=== PATIENT | female | born 1980 | race Caucasian/White ===

== ENCOUNTER 2023-01-20 08:35 | Outpatient (REF) | payer MEDICAID, SELFPAY ==
[2023-01-20 11:30] LABS: MANUAL DIFF FLAG NO
[2023-01-20 11:44] LABS: Basophils Percent Auto 0.8 % (0-2); Eosinophils Absolute Auto 0.1 X10*3/uL (0.0-0.4); Eosinophils Percent Auto 1.3 % (0-4); Hematocrit 38.8 % (37.0-47.0); Hemoglobin 12.3 g/dl (12.0-16.0); Imm Gran Abs Auto 0.01 X10*3/uL (0.00-0.03); Imm Gran Pct Auto 0.2 % (0.0-0.4); Lymphocytes Absolute Auto 1.5 X10*3/uL (1.2-4.9); Lymphocytes Percent Auto 28.8 % (20-40); Mean Corpuscular HGB Conc 31.7 g/dl (31.0-35.0); Mean Corpuscular Hemoglobin 27.5 pg (27.0-33.0); Mean Corpuscular Volume 86.8 fL (80.0-98.0); Mean Platelet Volume 11.6 fL (9.4-12.3); Monocytes Absolute Auto 0.4 X10*3/uL (0.1-1.2); Monocytes Percent Auto 8.3 % (2-11); Neutrophils Absolute Auto 3.2 x10*3/uL (2.0-8.3); Neutrophils Percent Auto 60.6 % (45-73); Platelet Count 227 X10*3/uL (160-400); Red Blood Count 4.47 X10*6/uL (4.20-5.50); Red Cell Distribution Width 13.2 % (11.0-16.0); White Blood Count 5.3 X10*3/uL (4.8-10.8)
[2023-01-20 11:58] LABS: Estimated Average Glucose 103 mg/dL; Hemoglobin A1c % 5.2 % (<6.0)
[2023-01-20 11:59] LABS: Alanine Aminotransferase 12 U/L (0-31); Albumin Level 4.2 g/dL (3.5-5.0); Alkaline Phosphatase 44 U/L (39-117); Anion Gap 10 (12-20); Aspartate Amino Transferase 19 U/L (5-31); Bilirubin Total 0.5 mg/dL (0.0-1.0); Blood Urea Nitrogen 11 mg/dL (9-16); Calcium 9.4 mg/dL (8.4-10.2); Carbon Dioxide 26 mmol/L (22-29); Chloride 107 mmol/L (96-108); Cholesterol 161 mg/dL (<200); Estimated Glomerular Filt Rate > 60; Glucose Random 87 mg/dL (60-115); HDL Cholesterol 64 mg/dL (>40); LDL Cholesterol Calculated 87 mg/dL (<100); Potassium 4.5 mmol/L (3.3-5.1); Sodium 138 mmol/L (135-145); Total Protein 7.3 g/dL (6.5-8.0); Triglycerides 53 mg/dL (<150)
[2023-01-20 12:16] LABS: HBc Num1 0.14 S/CO (0.00-0.79); HBsAGNum1 0.37 S/CO (0.00-0.99); HIV AB/AG Nonreactive (Nonreactive); Hepatitis A Antibody IgM 0.18 Index (0-0.79); Hepatitis B Core Antibody Nonreactive (Nonreactive); Hepatitis B Surface Antigen Negative (Negative); ~HepC Num1 0.14 S/CO (0.00-0.79); ~Hepatitis A Antibody IgM Nonreactive (Nonreactive); ~Hepatitis B Surface Antibody NONREACTIVE (Nonreactive); ~Hepatitis C Antibody Nonreactive (Nonreactive)
[2023-01-21 03:49] LABS: Syphilis Screen Nonreactive (Nonreactive)
== END 2023-01-20 08:36 | disposition home or self-care (01) ==
LOC: HO.HHCL 08:35
PROVIDERS: Visit Provider Registered Nurse
DX: Z00.00 Encounter for general adult medical examination without abnormal findings (principal); R42 Dizziness and giddiness; Z13.1 Encounter for screening for diabetes mellitus; Z13.220 Encounter for screening for lipoid disorders
CPT/HCPCS: 36415; 80053; 80061; 83036; 85025; 86704; 86706; 86709; 86780; 86803; 87340; 87389

== ENCOUNTER 2023-05-24 14:41 | Outpatient (REF) | payer MEDICAID, SELFPAY ==
[2023-05-27 07:18] LABS: TS Negative Control Passed; TS Panel A 0; TS Panel B 0; TS Positive Control Passed; TSpotTB Negative (Negative)
== END 2023-05-24 14:42 | disposition home or self-care (01) ==
LOC: HO.HHCL 14:41
PROVIDERS: Visit Provider Student in an Organized Health Care Education/Training Program
DX: Z11.1 Encounter for screening for respiratory tuberculosis (principal)
CPT/HCPCS: 36415; 86481

== ENCOUNTER 2024-08-10 09:07 | Outpatient (REF) | payer MEDICAID, SELFPAY ==
--- OUTSIDE RECORDS SUMMARY | 2024-08-10 09:43 | XMS_ITS | Encounter Summary ---
Author Organization [email or web address] Address [address] [facility] 7 [place] [address] Care Team Providers Care Ethnoarchaeologist Name Role Phone Dori Garcia MD Primary Care Pro vider Reason for Visit * Reason Onset Date Comments Lab Orders 08/10/2024 Appointment Request 08/10/2024 Encounter Details Date Type Department Care Team ([facility] st Contact Info) Description 08/10/2024 Telephone [facility] MEDICINE [address] [place], [place] [phone] Mary Jane Douglas, RN [address] [place] [address] Lab Orders; Appointment Request Social History Tobacco Use Types Packs/Day Years Used Date Smoking Tobacco: Never Passive Smoke Exposure: Never Smokeless Tobacco: Never Depression Answer Date Recorded Patient Health Questionnaire-9 Score 0 02/15/2023 Housing Stability Answer Date Recorded What is your housing situation today? I have benradha barlow 03/14/[address] you li ve. Do you have problems with any of the following? None of the above 03/14/2023 Food Insecurity Answer Date Recorded Within the past 12 months, y ou worried that your food would run out before you got money to buy more: Never True 03/14/2023 Within the past 12 months,th e food you bought just didn't last and you didn't have enough money to get more: Never True Transportation Answer Date Recorded In the past 12 months, has l ack of transportation kept you from medical appts, meetings, work or from getting things needed for daily living? No 03/14/2023 Utilities Answer Date Recorded In the past 12 months, has t he electric, gas, oil or water company threatened to shut off services in your home? No 03/14/2023 Depression Answer Date Recorded Patient Health Questionnaire-2 Score 0 02/15/2023 Comments Unknown Sex and Gender Information Value Date Recorded Sex Assigned at Female 01/18/2023 12:48 PM EDT Legal Sex Female 2:12 PM EDT Gender Identity Female 01/18/2023 12:48 PM EDT Sexual Orientation Don't know 01/18/2023 12 :48 PM EDT documented as of this encounter Miscellaneous Notes * Telephone Encounter - Mary Jane Douglas RN - 08/10/2024 8:59 AM EDT Pt requesting TB test for work. Order placed. Pt will go to the lab. Informed results usually available within 24-48hrs. Can pick them up from HIM once available. documented in this encounter Plan of Treatment Upcoming Encounters Date Type Department Care Team (Late st Contact Info) Description 10/25/2024 1:45 PM EDT Office Visit [facility] MEDICINE [address] [place] [phone] Dori Garcia MD [address] [place] [phone] Scheduled Orders Name Type Priority Associated Diagnoses Orde r Schedule T-SPOT??.TB Lab Routine Screening for tuberculosis Expected: 08/10/2024 (Approximate), Expires: 08/10/2025 documented as of this encounter Visit Diagnoses Diagnosis Screening for tuberculosis Screening examination for pulmonary tuberculosis documented in this encounter Additional Health Concerns Assessment Noted Time PHQ-9 Depression Total Score: 0 02/16/20 9:06 AM EDT documented as of this encounter Care Teams Ethnoarchaeologist Relationship Specialty Start Date End Date Dori Garcia MD [address] [place] [phone] PCP - General Internal Medicine 02/15/23 documented as of this encounter
--- OUTSIDE RECORDS SUMMARY | 2024-08-10 09:43 | XMS_ITS | Clinical Summary ---
Author Organization [employer] Address [address] [facility] 7t [place] [address] Care Team Providers Care Vocational Trainer Name Role Phone Dori Garcia MD Primary Care Pro vider Allergies No known active allergies Medications ondansetron ODT (Zofran-ODT) 4 MG disintegrating tabletIndications: Frequent headaches Take 1 tablet (4 mg) by mouth every 8 (eight) hours if needed for nausea or vomiting. 60 tablet 1 3 Active SUMAtriptan (Imitrex) 25 MG tabletIndications: Frequent headaches Take 1 tablet (25 mg) by mouth 1 (one) time if needed for migraine for up to 1 dose. May repeat dose once in 2 hours if no relief. Do not exceed 2 doses in 24 hours. 9 tablet 2 3 Active metroNIDAZOLE (MetroCream) 0.75 % cream Apply topically 2 times daily. 45 g 1 4 12/28/19 25 Active Active Problems Problem Noted Date Diagnosed Date Vision changes 02/15/2023 Assessment & Plan (03/03/2023 10:28 AM EDT): Contacted Optometry at [facility] again to discuss pt case Unable to obtain records from [facility] eye exam but pt reports her eyes were dilated and was told exam is normal Continued head pressure, dizziness, and darkening spots in vision are concerning. [facility] vision will schedule for urgent eye evaluation F/u 3 months with new PCP IUFD at 20 weeks or more of gestation 01/18/2023 Overview (01/18/2023): Onset 3 years ago Induced labor IUFD, fetus had stopped developing. Secondary cataract of right eye 01/18/2023 Overview (01/18/2023): Occurred after Induced labor due to IUFD Also may have lens transplant R eye; unclear. No medical records Health care maintenance 01/18/2023 Overview (03/03/2023): Routine Health Maintenance: Immunizations: Due Hep B booster vaccines, declines today. Will consider in future. HIV: Nonreactive 01/20/23 Hep C: Nonreactive 01/20/23 Hepatitis B: Nonreactive surface antibodies 01/20/23. Recommend repeat Hep B booster vaccine series. Pap Smear: Discuss next visit. Shared decision-making guidelines. ACS: age 25-65 HPV swab every 5 years. USPSTF: age 21-25 cytology only q 3 y; age 25-29 cytology w/ reflex HPV q 3 y; age 30-65 PAP w/ HPV cotest q 5 years. DUE, discuss next visit Mammogram: Discuss next visit. Per ACS screening start age 45, earlier if risk factors present. Per USPSTF guidelines screenings Age 50-74 screening every other year. DUE, discuss next visit Colonoscopy: not due yet Lung cancer: Never smoker, does not meet criteria Eye: concerning eye sx. Will call for for [facility] vision appt Dental: discuss at next visit Assessment & Plan (02/15/2023 1:25 PM EDT): Reviewed labs with pt in clinic today Frequent headaches 01/18/2023 Overview (03/03/2023): Ddx: Migraines; pseudotumor cerebri; tension headache; medication overuse headache MRI performed, results pending Sumatriptan 25 mg PRN for headache Rx Zofran for nausea; educated on use Taking med Corvaltab that was prescribed in [facility] Assessment & Plan (03/03/2023 10:31 AM EDT): Will obtain MRI results Educated pt that Corvaltab is a strong medication that is not prescribed in the [place]. Tremors and headaches may be SE of medication per Provider research online. Educated pt to hold corvaltab. Also no need for benzodiazepine at the time, do not take Gidazepam. Continue sumatriptan and zofran Will schedule for vision exam [facility] Vision urgent d/t continued darkening of vision F/u 2-3 mo with new PCP or sooner PRN Encounters Date Type Department Care Team Description 08/10/2024 Telephone [facility] MEDICINE [address] [place] [address] Mary Jane Douglas, nail making machine tender Orders; Appointment Request from Last 3 Months Family History Medical History Relation Name Comments stomach ulcer Father Stomach ulcer Maternal Grandfather Liver disease Mother Relation Name Status Comments Father Maternal Grandfather Mother Social History Tobacco Use Types Packs/Day Years Used Date Smoking Tobacco: Never Passive Smoke Exposure: Never Smokeless Tobacco: Never Tobacco Cessation:Counseling Given: Not Answered Depression Answer Date Recorded Patient Health Questionnaire-9 [...] the past 12 months, has t he [employer], gas, oil or water [employer] threatened to shut off services in your home? No 03/14/2023 Depression Answer Date Recorded Patient Health Questionnaire-2 Score 0 02/15/2023 Comments Unknown Sex and Gender Information Value Date Recorded Sex Assigned at Female 01/18/2023 12:48 PM EDT Legal Sex Female 2:12 PM EDT Gender Identity Female 01/18/2023 12:48 PM EDT Sexual Orientation Don't know 01/18/2023 12 :48 PM EDT Last Filed Vital Signs Vital Sign Reading Time Taken Comments Blood Pressure 123/82 12/28/2023 8:56 AM EDT Pulse 66 12/28/2023 8:56 AM EDT Temperature 36.6 ??C (97.8 ??F) 12/28/2023 8:56 AM ED T Respiratory Rate 16 12/28/2023 8:56 AM EDT Oxygen Saturation 98% 12/28/2023 8:56 AM EDT Inhaled Oxygen Concentration - - Weight 66.9 kg (147 lb 6.4 oz) 12/28/2023 8:56 A M EDT Height 165.1 cm (5' 5 ) 12/28/2023 8:56 AM EDT Body Mass Index 24.53 12/28/2023 8:56 AM EDT Plan of Treatment Upcoming Encounters Date Type Department Care Team (Late st Contact Info) Description 10/25/2024 1:45 PM EDT Office Visit [facility] MEDICINE [address] [place] [address] [phone] Dori Garcia MD [address] [place], [place] [phone] Health Maintenance Due Date Last Done Comments Alcohol/Substance Use Screening 1993 Family Planning (PISQ) 1996 DTaP/Tdap/Td Vaccines (1 - Tdap) 2000 Hepatitis B Vaccines (1 of 3 - 19+ 3-dose series) 2000 Pap Smear 2002 Cervical Cancer Screening 10/24/2011 HPV/Cotest 10/24/2011 Mammogram 2021 COVID-19 Vaccine (1 - 2023-2 5 season) 2024 Influenza Vaccine (#1) 2024 Depression Screening 02/16/2024 02/15/2023, 02/15/2023 SDOH Screening 02/16/2024 02/15/2023 Tobacco Screening 02/16/2024 02/15/2023 Zoster Vaccines (1 of 2) 10/24/2031 RSV Patients and Patients Aged 60 years or older (1 - 1-dose 75+ series) 2056 HIV Screening Completed 01/20/2023 Hepatitis C Screening Completed 01/20/2023 HIB Vaccines Aged Out No longer eligi ble based on patient's age to complete this topic HPV Vaccines Aged Out No longer eligi ble based on patient's age to complete this topic Hepatitis A Vaccines Aged Out No long er eligible based on patient's age to complete this topic IPV Vaccines Aged Out No longer eligi ble based on patient's age to complete this topic Meningococcal Vaccine Aged Out No fabricio cleopatra eligible based on patient's age to complete this topic Pneumococcal Vaccine: Pediatrics (0 to 5 Years) and At-Risk Patients (6 to 49) Years) Aged Out No longer eligible b ased on patient's age to complete this topic RSV under 20 months Aged Out No longe r eligible based on patient's age to complete this topic Rotavirus Vaccines Aged Out No longer eligible based on patient's age to complete this topic Procedures Procedure Name Priority Date/Time Associated Diagnosis Comments HEPATITIS PANEL, GENERAL Routine 01/20/2023 8:42 AM EDT Health care maintenance HIV ANTIBODY/ANTIGEN ([place] DPH) Routine 01/20/2023 8:42 AM EDT from Last 3 Months or Most Recently Relevant to Health Maintenance Results * HIV Ab/Ag ([place] DPH) (01/20/2023 8:42 AM EDT) Pathologist [facility] HIV AB/AG Nonreactive Nonreactive [facility] Comment:HIV-1 p24 Ag and/or HIV-1/HIV-2 Ab not detected.A test result that is nonreactive does not exclude thepossibility of exposure to or infection with HIV-1 and/orHIV-2. Nonreactive results in this assay for individualswith prior exposure to HIV-1 and/or HIV-2 may be due toantigen and antibody levels that are below the limit ofdetection of this assay.The [employer] Supervisor HIV Ag/Ab Combo assay result andsupplemental assay results should be interpreted inconjunction with the patient's clinical presentation,history and other laboratory results. If the results areinconsistent with clinical evidence, additional testing issuggested to confirm the result. 01/20/2023 8:42 AM EDT 01/20/2023 11:24 AM EDT Kenzie Be PAYMENT COLLECTOR LAB BLOOD ORDERABLES Final Result Performing Organization Address City/[facility]/ZIP Co de Phone Number [facility] [address] [place] [phone] [phone] * Hepatitis Panel, General (01/20/2023 8:42 AM EDT) Hepatitis A IgM Nonreactive Nonreactive [facility] Comment:IgM antibodies to FIGUEREDO V not detected; does not exclude earlyacute or recovered HAV infection. ~Hepatitis B Surface Antibody NONREACTIVE Nonreactive [facility] Comment:Nonreactive: < 8.00 mIU/mL Hepatitis B Core Antibody Nonreactive Nonreactive [facility] Hepatitis C Antibody Nonreactive Nonreactive [facility] Comment:Antibodies to HCV no t detected; does not exclude early acuteHCV infection. Hepatitis B Surface Ag Negative Negative [facility] Blood 01/20/2023 8:42 AM EDT 01/20/2023 11:24 AM EDT Kenziepatricia Be PAYMENT COLLECTOR LAB BLOOD ORDERABLES Final Result Performing Organization Address [facility] Co de Phone Number [facility] [address] [place] [phone] from Last 3 Months or Most Recently Relevant to Health Maintenance Insurance [facility] C3 Care Teams Vocational Trainer Relationship Specialty Start Date End Date Dori Garcia MD [address] [place] [phone] PCP - General Internal Medicine 02/15/23
[2024-08-14 00:52] LABS: TS Negative Control Passed; TS Panel A 1; TS Panel B 0; TS Positive Control Passed; TSpotTB Negative (Negative)
== END 2024-08-10 09:08 | disposition home or self-care (01) ==
LOC: HO.HHCL 09:07
PROVIDERS: Visit Provider Student in an Organized Health Care Education/Training Program
DX: Z11.1 Encounter for screening for respiratory tuberculosis (principal)
CPT/HCPCS: 36415; 86481

== ENCOUNTER 2025-03-29 10:36 | Outpatient (REF) | payer MEDICAID, SELFPAY ==
--- OUTSIDE RECORDS SUMMARY | 2025-03-29 09:15 | XMS_ITS | Encounter Summary ---
Author Organization [employer] Address [address] [place] [address] 7 [place] [address] Care Team Providers Care Category Manager Name Role Phone Dori Garcia MD Primary Care Pro vider Reason for Referral * Consultation (Routine) - Pending Review Specialty Diagnoses / Procedures Referred By Satnam reid Referred To Contact Neurology Diagnoses Frequent headaches Dori Garcia MD [address] [place] [address] Phone: tel: fax: Referral ID Status Reason Start Date Expiration Date Visits Requested Visits Authorized [id number] Pending Review Specialty Services Required 03/29/2026 1 1 * Imaging (Routine) - Authorized Specialty Diagnoses / Procedures Referred By Satnam reid Referred To Contact Radiology Diagnoses Encounter for screening mammogram for malignant neoplasm of breast Procedures BI Mammogram Screening Tomosynthesis Bilateral Dori Garcia MD [address] [place] [address] Phone: tel: fax: [facility] Referral ID Status Reason Start Date Expiration Date V isits Requested Visits Authorized [id number] Authorized 03/29/2025 03/29/2026 1 1 Encounter Details Date Type Department Care Team (Late st Contact Info) Description 03/29/2025 9:15 AM EDT Office Visit [facility] MEDICINE [address] [place] [address] Dori Garcia MD [address] [place] [address] Encounter for screening mammogram for malignant neoplasm of breast (Primary Dx); Health care maintenance; Frequent headaches; Annual physical exam Social History Tobacco Use Types Packs/Day Years Used Date Smoking Tobacco: Never Passive Smoke Exposure: Never Smokeless Tobacco: Never Alcohol Use Standard Drinks/Week Comments Not Currently 0 (1 standard drink = 0.6 oz pur e alcohol) Depression Answer Date Recorded Patient Health Questionnaire-9 Score 0 02/15/2023 Housing Stability Answer Date Recorded What is your housing situation today? I have ben yen 03/14/[address] you li [...] Date Recorded Patient Health Questionnaire-2 Score 0 03/29/2025 Comments Unknown Sex and Gender Information Value Date Recorded Sex Assigned at Female 01/18/2023 12:48 PM EDT Legal Sex Female 2:12 PM EDT Gender Identity Female 01/18/2023 12:48 PM EDT Sexual Orientation Straight 03/29/2025 9: 38 AM EDT documented as of this encounter Last Filed Vital Signs Vital Sign Reading Time Taken Comments Blood Pressure 118/68 03/29/2025 9:35 AM EDT Pulse 67 03/29/2025 9:35 AM EDT Temperature 36.1 C (97 F) 03/29/2025 9:35 AM EDT Respiratory Rate 20 03/29/2025 9:35 AM EDT Oxygen Saturation 98% 03/29/2025 9:35 AM EDT Inhaled Oxygen Concentration - - Weight 65.5 kg (144 lb 6.4 oz) 03/29/2025 9:35 A M EDT Height 165.1 cm (5' 5 ) 03/29/2025 9:35 AM EDT Body Mass Index 24.03 03/29/2025 9:35 AM EDT documented in this encounter Functional Status * Question Answer Date of Assessment Author Feeling nervous, anxious, or on edge 0 03/29/2025 9:39 AM EDT Hyun Garcia MD Not being able to stop or control worrying 0 03/29/2025 9:39 AM EDT Hyun Garcia MD * Over the past 2 weeks, how often have you been bothered by any of the following problems? Question Answer Date of Assessment Author Little interest or pleasure in doing things Not at all 03/29/2025 9:38 AM EDT Hyun Garcia MD Feeling down, depressed, or hopeless Not at all 03/29/2025 9:38 AM EDT Hyun Garcia MD Patient Health Questionnaire-2 Score 0 03/29/2025 9:38 AM EDT Emil Garcia MD documented as of this encounter Plan of Treatment Scheduled Orders Name Type Priority Associated Diagnoses Orde r Schedule BI Mammogram Screening Tomosynthesis Bilateral Imaging Routine Encounter for screening mammogram for malignant neoplasm of breast Expected: 03/29/2025, Expires: 05/29/2026 Chlamydia/Trichomonas/Neis seria gonorrhoeae, PCR, Urine Lab Routine Annual physical exam Ordered: 03/29/2025 Comprehensive Metabolic Panel Lab Routine Annual physical exam Expected: 03/29/2025 (Approximate), Expires: 03/29/2026 Hemoglobin A1c Lab Routine Annual physical exam Expected: 03/29/2025 (Approximate), Expires: 03/29/2026 Hepatitis B Core Antibody, Total Lab Routine Annual physical exam Expected: 03/29/2025 (Approximate), Expires: 03/29/2026 Hepatitis B Surface Antibody, Qualitative Lab Routine Annual physical exam Expected: 03/29/2025 (Approximate), Expires: 03/29/2026 Hepatitis B surface antigen, EIA Lab Routine Annual physical exam Expected: 03/29/2025 (Approximate), Expires: 03/29/2026 Hepatitis C Antibody with Reflex to HCV, RNA, Quantitative, Real-Time PCR Lab Routine Annual physical exam Expected: 03/29/2025 (Approximate), Expires: 03/29/2026 HIV-1/2 Antigen and Antibodies, Fourth Generation, with Reflexes Lab Routine Annual physical exam Expected: 03/29/2025 (Approximate), Expires: 03/29/2026 Lipid Panel, Standard Lab Routine Annual physical exam Expected: 03/29/2025 (Approximate), Expires: 03/29/2026 Syphilis Screen Lab Routine Annual physical exam Expected: 03/29/2025 (Approximate), Expires: 03/29/2026 TSH with Reflex to Free T4 Lab Routine Annual physical exam Expected: 03/29/2025 (Approximate), Expires: 03/29/2026 Scheduled Referrals Name Type Priority Associated Diagnoses Orde r Schedule Referral to Neurology Outpatient Referral Routine Frequent headaches Expected: 03/29/2025 (Approximate), Expires: 03/29/2026 documented as of this encounter Procedures Procedure Name Priority Date/Time Associated Diagnosis Comments CBC WITH AUTO DIFFERENTIAL Routine 03/29/2025 10:44 AM EDT Annual physical exam documented in this encounter Results * CBC auto differential (03/29/2025 10:44 AM EDT) White Blood Count 5.1 4.8 - 10.8 X10*3/uL [facility] Red Blood Count 4.51 4.20 - 5.50 X10*6/uL [facility] Hemoglobin 12.4 12.0 - 16.0 g/dl [facility] Hematocrit 40.0 37.0 - 47.0 % [facility] Mean Corpuscular Volume 88.7 80.0 - 98.0 fL [facility] Mean Corpuscular Hemoglobin 27.5 27.0 - 33.0 pg [facility] Mean Corpuscular HGB Conc 31.0 31.0 - 35.0 g/dl [facility] Red Cell Distribution Width 13.2 11.0 - 16.0 % [facility] Platelet Count 238 160 - 400 X10*3/uL [facility] Mean Platelet Volume 11.5 9.4 - 12.3 fL [facility] Neutrophils Percent Auto 66.1 45 - 73 % [facility] Imm Gran Pct Auto 0.2 0.0 - 0.4 % [facility] Lymphocytes Percent Auto 23.3 20 - 40 % [facility] Monocytes Percent Auto 8.0 2 - 11 % [facility] Eosinophils Percent Auto 1.6 0 - 4 % [facility] Basophils Percent Auto 0.8 0 - 2 % [facility] NRBC Pct Auto 0.0 0.0 - 0.2 /100WBC [facility] Neutrophils Absolute Auto 3.4 2.0 - 8.3 x10*3/uL [facility] Imm Gran Abs Auto 0.01 0.00 - 0.03 X10*3/uL [facility] Lymphocytes Absolute Auto 1.2 1.2 - 4.9 X10*3/uL [facility] Monocytes Absolute Auto 0.4 0.1 - 1.2 X10*3/uL [facility] Eosinophils Absolute Auto 0.1 0.0 - 0.4 X10*3/uL [facility] Basophils Absolute Auto 0.0 0.0 - 0.2 X10*3/uL [facility] NRBC Abs Auto 0.000 0.0 - 0.012 X10*3/uL [facility] Blood Venous blood specimen / Unknown 03/29/2025 10:44 AM EDT 03/29/2025 11:22 AM EDT us Dori Roberts MD LAB BLOOD ORDERAB LES Final Result [facility] [address] [place] [address] [phone] documented in this encounter Visit Diagnoses Diagnosis Encounter for screening mammogram for malignant neoplasm of breast- Primary Health care maintenance Frequent headaches Annual physical exam Routine general medical examination at a health care facility documented in this encounter Additional Health Concerns Assessment Noted Time PHQ-9 Depression Total Score: 0 02/16/20 9:06 AM EDT documented as of this encounter Care Teams Category Manager Relationship Specialty Start Date End Date Dori Garcia MD [address] [place] [phone] PCP - General Internal Medicine 02/15/23 documented as of this encounter
[2025-03-29 11:28] LABS: MANUAL DIFF FLAG NO
[2025-03-29 11:37] LABS: Hematocrit 40.0 % (37.0-47.0); Hemoglobin 12.4 g/dl (12.0-16.0); Imm Gran Abs Auto 0.01 X10*3/uL (0.00-0.03); Imm Gran Pct Auto 0.2 % (0.0-0.4); Lymphocytes Absolute Auto 1.2 X10*3/uL (1.2-4.9); Mean Corpuscular HGB Conc 31.0 g/dl (31.0-35.0); Mean Corpuscular Hemoglobin 27.5 pg (27.0-33.0); Mean Corpuscular Volume 88.7 fL (80.0-98.0); NRBC Abs Auto 0.000 X10*3/uL (0.0-0.012); NRBC Pct Auto 0.0 /100WBC (0.0-0.2); Platelet Count 238 X10*3/uL (160-400); Red Blood Count 4.51 X10*6/uL (4.20-5.50); White Blood Count 5.1 X10*3/uL (4.8-10.8)
--- OUTSIDE RECORDS SUMMARY | 2025-03-29 12:01 | XMS_ITS | Encounter Summary ---
Author Organization [employer] Address [address] [facility] 7 [place] [address] Care Team Providers Care Night Supervisor Name Role Phone Dori Garcia MD Primary Care Pro vider Reason for Visit * Reason Onset Date Comments chart prep 03/28/2025 Encounter Details Date Type Department Care Team ([facility] st Contact Info) Description 03/28/2025 Telephone [facility] MEDICINE [address] [place], [place] [phone] Dori Garcia MD [address] [place] [address] chart prep Social History Tobacco Use Types Packs/Day Years [...] the past 12 months, has t he [employer], [employer], oil or water [employer] threatened to shut off services in your home? No 03/14/2023 Depression Answer Date Recorded Patient Health Questionnaire-2 Score 0 03/29/2025 Comments Unknown Sex and Gender Information Value Date Recorded Sex Assigned at Female 01/18/2023 12:48 PM EDT Legal Sex Female 2:12 PM EDT Gender Identity Female 01/18/2023 12:48 PM EDT Sexual Orientation Straight 03/29/2025 9: 38 AM EDT documented as of this encounter Miscellaneous Notes * Telephone Encounter - Steffanie Dior [place] - 03/28/2025 10:21 AM EDT Chart Prep Labs: not applicable Images: Pelvic [facility] at [facility] 02/1725 prited form [facility] Referrals: [facility] kept 02/25/25 notes printed Vaccines due: Covid and Flu Screenings: mammogram, pap smear, and LMP Overdue care gaps: SBIRT, SDOH, PHQ-9, HA-7, Oral health screening, and Disability screen documented in this encounter Plan of Treatment Not on file documented as of this encounter Visit Diagnoses Not on filedocumented in this encounter Additional Health Concerns Assessment Noted Time PHQ-9 Depression Total Score: 0 02/16/20 9:06 AM EDT documented as of this encounter Care Teams Night Supervisor Relationship Specialty Start Date End Date Dori Garcia MD [address] [place] [phone] PCP - General Internal Medicine 02/15/23 documented as of this encounter
--- OUTSIDE RECORDS SUMMARY | 2025-03-29 12:01 | XMS_ITS | Encounter Summary ---
Author Organization [employer] Address [address] [facility] 7t [place] [address] Care Team Providers Care Managed Care Liaison Name Role Phone Dori Garcia MD Primary Care Pro vider Encounter Details Date Type Department Care Team ([facility] st Contact Info) Description 12/06/2024 Telephone [facility] MEDICINE [address] [place], [place] [phone] Dori Garcia MD [address] [place] [address] Social History Tobacco Use Types Packs/Day Years [...] AM EDT documented as of this encounter Plan of Treatment Not on file documented as of this encounter Visit Diagnoses Not on filedocumented in this encounter Additional Health Concerns Assessment Noted Time PHQ-9 Depression Total Score: 0 02/16/20 9:06 AM EDT documented as of this encounter Care Teams Managed Care Liaison Relationship Specialty Start Date End Date Dori Garcia MD [address] [place] [phone] PCP - General Internal Medicine 02/15/23 documented as of this encounter
--- OUTSIDE RECORDS SUMMARY | 2025-03-29 12:01 | XMS_ITS | Encounter Summary ---
Author Organization [employer] Address [address] [facility] 7t [place] [address] Care Team Providers Care Presales Engineer Name Role Phone Dori Garcia MD Primary Care Pro vider Encounter Details Date Type Department Care Team (Latest Contact Info) Description 03/29/2025 Travel Social History Tobacco Use Types Packs/Day Years [...] AM EDT documented as of this encounter Functional Status * Question Answer [...] documented as of this encounter Care Teams Presales Engineer Relationship Specialty Start Date End Date Dori Garcia MD [address] [place] [phone] PCP - General Internal Medicine 02/15/23 documented as of this encounter
--- OUTSIDE RECORDS SUMMARY | 2025-03-29 12:01 | XMS_ITS | Clinical Summary ---
Author Organization [email or web address] Address [address] [facility] 7t [place] [address] Care Team Providers Care Injection Mold Technician Name Role Phone Dori Garcia MD Primary Care Pro vider Allergies No known active allergies Medications Multiple Vitamin (multivitamin) tablet Take 1 tablet by mouth Once per day. Active ibuprofen 400 MG tablet Take 400 mg by mouth every 6 (six) hours if needed for moderate pain. Active ondansetron ODT (Zofran-ODT) 4 MG disintegrating tabletIndications: Frequent headaches Take 1 tablet (4 mg) by mouth every 8 (eight) hours if needed for nausea or vomiting. 60 tablet 1 3 025 Discontin ued(Other ) SUMAtriptan (Imitrex) 25 MG tabletIndications: Frequent headaches Take 1 tablet (25 mg) by mouth 1 (one) time if needed for migraine for up to 1 dose. May repeat dose once in 2 hours if no relief. Do not exceed 2 doses in 24 hours. 9 tablet 2 3 025 Discontin ued(Other ) Active Problems Problem Noted Date Diagnosed Date IUFD at 20 weeks or more of [...] concerning eye sx. Will call for for [facility] vision appt Dental: discuss at next visit Assessment & Plan (02/15/2023 1:25 PM EDT): Reviewed labs with pt in clinic today Frequent headaches 01/18/2023 Overview (03/03/2023): Ddx: Migraines; pseudotumor cerebri; tension headache; medication overuse headache MRI performed, results pending Sumatriptan 25 mg PRN for headache Rx Zofran for nausea; educated on use Taking med Corvaltab that was prescribed in [facility] Assessment & Plan (03/03/2023 10:31 AM EDT): [...] and zofran Will schedule for vision exam [facility] Vision urgent d/t continued darkening of vision F/u 2-3 mo with new PCP or sooner PRN Encounters Date Type Department Care Team Description 03/29/2025 9:15 AM EDT Office Visit [facility] MEDICINE [address] [place] [phone] Dori Garcia MD Encounter for screening mammogram for malignant neoplasm of breast (Primary Dx); Health care maintenance; Frequent headaches; Annual physical exam 03/29/2025 Travel 03/28/[address] [phone] Dori Garcia MD chart prep 03/21/2025 Patient Outreach [address] [address] Dori Garcia MD Pre-visit Planning (Pre-visit planning - LVM ) from Last 3 Months Family History Medical History Relation Name Comments stomach ulcer Father Stomach ulcer Maternal Grandfather Liver disease Mother Relation Name Status Comments Father Maternal Grandfather Mother Social History Tobacco Use Types Packs/Day Years Used Date Smoking Tobacco: Never Passive Smoke Exposure: Never Smokeless Tobacco: Never Tobacco Cessation:Counseling Given: Not Answered Alcohol Use Standard Drinks/Week Comments Not Currently [...] Orientation Straight 03/29/2025 9: 38 AM EDT Last Filed Vital Signs Vital Sign [...] Mass Index 24.03 03/29/2025 9:35 AM EDT Plan of Treatment Health Maintenance Due Date Last Done Comments Disability Screening 1981 Alcohol/Substance Use Screening 1993 Family Planning (PISQ) 1996 HPV Vaccines (1 - 3-dose series) 1996 DTaP/Tdap/Td Vaccines (1 - Tdap) 2000 Hepatitis B Vaccines (1 of 3 - 19+ 3-dose series) 2000 Pap Smear 2002 Cervical Cancer Screening 10/24/2011 HPV/Cotest 10/24/2011 Mammogram 2021 SDOH Screening 02/16/2024 02/15/2023 COVID-19 Vaccine (1 - 2023-2 5 season) 2025 Influenza Vaccine (#1) 2025 Depression Screening 03/29/2026 03/29/2025, 02/15/2023 Tobacco Screening 03/29/2026 03/29/2025 Zoster Vaccines (1 of 2) 10/24/2031 RSV [...] patient's age to complete this topic Meningococcal B Vaccine Aged Out No l onger eligible based on patient's age to complete this topic Meningococcal Vaccine Aged Out No fabricio cleopatra eligible based on patient's age to complete this topic Pneumococcal Vaccine: Pediatrics (0 to 5 Years) and At-Risk Patients (6 to 49) Years Aged Out No longer eligible b ased [...] 03/29/2025 10:44 AM EDT Annual physical exam HEPATITIS PANEL, GENERAL Routine 01/20/2023 8:42 AM EDT Health care maintenance HIV ANTIBODY/ANTIGEN (ND DP) Routine 01/20/2023 8:42 AM EDT from Last 3 Months or Most Recently Relevant to Health Maintenance Results * CBC auto differential (03/29/2025 10:44 AM EDT) White Blood Count 5.1 4.8 - 10.8 X10*3/uL LABS Red Blood Count 4.51 4.20 - 5.50 X10*6/uL LABS Hemoglobin 12.4 12.0 - 16.0 g/dl LABS Hematocrit 40.0 37.0 - 47.0 % LABS Mean Corpuscular Volume 88.7 80.0 - 98.0 fL LABS Mean Corpuscular Hemoglobin 27.5 27.0 - 33.0 pg LABS Mean Corpuscular HGB Conc 31.0 31.0 - 35.0 g/dl LABS Red Cell Distribution Width 13.2 11.0 - 16.0 % LABS Platelet Count 238 160 - 400 X10*3/uL LABS Mean Platelet Volume 11.5 9.4 - 12.3 fL LABS Neutrophils Percent Auto 66.1 45 - 73 % LABS Imm Gran Pct Auto 0.2 0.0 - 0.4 % LABS Lymphocytes Percent Auto 23.3 20 - 40 % LABS Monocytes Percent Auto 8.0 2 - 11 % LABS Eosinophils Percent Auto 1.6 0 - 4 % LABS Basophils Percent Auto 0.8 0 - 2 % LABS NRBC Pct Auto 0.0 0.0 - 0.2 /100WBC LABS Neutrophils Absolute Auto 3.4 2.0 - 8.3 x10*3/uL LABS Imm Gran Abs Auto 0.01 0.00 - 0.03 X10*3/uL LABS Lymphocytes Absolute Auto 1.2 1.2 - 4.9 X10*3/uL LABS Monocytes Absolute Auto 0.4 0.1 - 1.2 X10*3/uL LABS Eosinophils Absolute Auto 0.1 0.0 - 0.4 X10*3/uL LABS Basophils Absolute Auto 0.0 0.0 - 0.2 X10*3/uL LABS NRBC Abs Auto 0.000 0.0 - 0.012 X10*3/uL LABS Blood Venous blood specimen / Unknown 03/29/2025 10:44 AM EDT 03/29/2025 11:22 AM EDT us Dori Roberts MD LAB BLOOD ORDERAB LES Final Result LABS [address] [place] [phone] * HIV Ab/Ag (SEAN COUNT INCLUDES THE [facility]) (01/20/2023 8:42 AM EDT) HIV AB/AG Nonreactive Nonreactive [facility] LABS Comment:HIV-1 p24 Ag and/or HIV-1/HIV-2 Ab not detected.A test result that is nonreactive does not exclude thepossibility of exposure to or infection with HIV-1 and/orHIV-2. Nonreactive results in this assay for individualswith prior exposure to HIV-1 and/or HIV-2 may be due toantigen and antibody levels that are below the limit ofdetection of this assay.The [employer] Inspector HIV Ag/Ab Combo assay result andsupplemental assay results should be interpreted inconjunction with the patient's clinical presentation,history and other laboratory results. If the results areinconsistent with clinical evidence, additional testing issuggested to confirm the result. 01/20/2023 8:42 AM EDT 01/20/2023 11:24 AM EDT [facility] LAB BLOOD ORDERABLES Final Result Performing Organization Address [facility] Co de Phone Number LABS [address] [place] [phone] * Hepatitis Panel, General (01/20/2023 8:42 AM EDT) Hepatitis A IgM Nonreactive Nonreactive LABS Comment:IgM antibodies to FIGUEREDO V not detected; does not exclude earlyacute or recovered HAV infection. ~Hepatitis B Surface Antibody NONREACTIVE Nonreactive LABS Comment:Nonreactive: < 8.00 mIU/mL Hepatitis B Core Antibody Nonreactive Nonreactive LABS Hepatitis C Antibody Nonreactive Nonreactive LABS Comment:Antibodies to HCV no t detected; does not exclude early acuteHCV infection. Hepatitis B Surface Ag Negative Negative LABS Blood 01/20/2023 8:42 AM EDT 01/20/2023 11:24 AM EDT [facility] LAB BLOOD ORDERABLES Final Result Performing Organization Address [facility] Co de Phone Number LABS [address] [place] [phone] from Last 3 Months or Most Recently Relevant to Health Maintenance Insurance [facility] C3 Care Teams Injection Mold Technician Relationship Specialty Start Date End Date Dori Garcia MD [address] [place] [phone] PCP - General Internal Medicine 02/15/23
[2025-03-29 13:42] LABS: Alanine Aminotransferase 23 U/L (0-31); Albumin Level 4.6 g/dL (3.5-5.0); Alkaline Phosphatase 54 U/L (39-117); Anion Gap 12 (12-20); Aspartate Amino Transferase 26 U/L (5-31); Blood Urea Nitrogen 10 mg/dL (9-16); Calcium 9.3 mg/dL (8.4-10.2); Carbon Dioxide 28 mmol/L (22-29); Chloride 104 mmol/L (96-108); Cholesterol 158 mg/dL (<200); Estimated Glomerular Filt Rate > 60; HDL Cholesterol 63 mg/dL (>40); Potassium 3.8 mmol/L (3.3-5.1); Sodium 140 mmol/L (135-145); Total Protein 7.3 g/dL (6.5-8.0); Triglycerides 45 mg/dL (<150)
[2025-03-29 15:00] LABS: CT PCR Urine NOT DETECTED (Not Detect.); NG PCR Urine NOT DETECTED (Not Detect.)
[2025-03-30 07:14] LABS: Syphilis Screen Nonreactive (Nonreactive)
[2025-03-30 07:51] LABS: HBS Num1 0.00 mIU/mL (0-7.99); HBc Num1 0.07 S/CO (0.00-0.79); HBsAGNum1 0.33 S/CO (0.00-0.99); HIV Num 1 0.20 S/CO (0.00-0.99); Hepatitis B Surface Antigen Negative (Negative); ~HepC Num1 0.13 S/CO (0.00-0.79); ~Hepatitis B Surface Antibody NONREACTIVE (Nonreactive); ~Hepatitis C Antibody Nonreactive (Nonreactive)
== END 2025-03-29 10:37 | disposition home or self-care (01) ==
LOC: HO.HHCL 10:36
PROVIDERS: PCP Student in an Organized Health Care Education/Training Program; Visit Provider Student in an Organized Health Care Education/Training Program
DX: Z00.00 Encounter for general adult medical examination without abnormal findings (principal); Z11.59 Encounter for screening for other viral diseases; Z20.2 Contact with and (suspected) exposure to infections with a predominantly sexual mode of transmission
CPT/HCPCS: 80053; 80061; 83036; 84443; 85025; 86704; 86706; 86780; 86803; 87340; 87389; 87491; 87591

== ENCOUNTER 2025-05-21 08:49 | Outpatient (AMB) | payer MEDICAID, SELFPAY ==
--- NOTE | 2025-05-21 08:55 | MHC.OFFVIS ---
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 According to the patient today, she has been experiencing some pressure sensations in her head along with a feeling of congestion in her ears, lightheadedness, blurring of vision, hearing pressure in her ears, and brain fog. Her pressure sensation is bitemporal and described as a tingling pressure and sometimes pulsating. She has some feeling of head pressure on average 3-4 times per week but worse and more frequently around the time of her menses and with weather changes. She had been on medication in the past in [facility] but this medication is not available in the [place]. She had some relief with it. She recalls that is was for Blood vessels and for spasms . Headache characteristics: Time of onset: Intermittent for 5 years Location:Bitemporal Radiation:None Positional component:No Character:Pressure Severity:Moderate. Can be more severe during menses. Duration: Hours Frequency:3-4 times per week Acute aggravating factors:None Acute relieving factors:None Associated symptoms: Congestion in her ears, lightheadedness, blurring of vision, hearing pressure in her ears, and brain fog Aura:None Headache triggers:Weather changes Relation to menses:Yes, more severe and frequent with menses Other related background information: Sleep:Reports frequent nightmares. She is also awakening from sleep due to her children's needs. Stressors: Reports some stress regarding living situation and children's wellbeing. Hydration:About 2 liters per day Caffeine intake: 2-4 cups of tea per day Alcohol intake:None Substance use:None Tobacco use:None Last eye exam:About 6 months ago Last dental visit:Within the last year History of head injury: None Family planning considerations: No plans to become . She is now preventing at this time however. Past medication trials: Ibuprofen- Some improvement Magnesium- Currently taking but is not aware of dose Prior workup: MRI brain at [facility] 01/25/2023 FINDINGS: No diffusion abnormalities are identified to suggest an acute or subacute infarct. No mass effect or midline shift is seen. The ventricles and sulci are normal in size. There are a few scattered foci of hyperintense T2 and FLAIR signal in the periventricular subcortical white matter, which are nonspecific and may be consistent with sequelae of vasculitis or migraine. They are not in a distribution suggestive of demyelination, and the patient is relatively young for microvascular ischemic changes. No extra-axial fluid collections are seen. The brainstem and cerebellum are normal. On postcontrast imaging, there is linear enhancement in the left frontal lobe, consistent with a developmental venous anomaly. No pathologic magnetic susceptibility artifact is identified on the gradient susceptibility sequences. The craniovertebral junction, marrow signal, and midline structures are normal. The major intracranial flow-voids at the level of the poarch of Steel are preserved. The dural venous sinus flow-voids are maintained, and opacify normally. On the available images the optic nerve heads appear normal. There has been a right lens extraction. There is a small retention cyst in the left frontoethmoidal recess. There is mild fluid at the left mastoid tip. IMPRESSION: 1. There are no acute bleeds or infarcts. There are no masses. 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 2. There are scattered foci of hyperintense T2 and FLAIR signal as described above. [facility] Medical History (Updated 05/21/25 @ 09:52 by Sylvie Griffiths CNP) Headache Surgical History (Updated 05/21/25 @ 09:10 by Rei Singh CMA) History of appendectomy History of right cataract surgery Family History (Updated 05/21/25 @ 09:11 by Rei Singh CMA) Mother No problems noted. Father Gastritis Review of Systems Const All systems reviewed & are unremarkable except as noted in HPI and below Physical Exam Const General: cooperative, healthy appearing, comfortable and no acute distress Nutritional Appearance: well nourished Orientation/consciousness: patient oriented x3 Limitations: no limitations HEENT Head: Yes normal to inspection and Yes normocephalic Eyes General: appearance normal, both eyes and all related structures Visual Cardenas: normal visual cardenas by confrontation Alignment and Position: alignment normal Periorbital: periorbital findings normal Eyelids: Yes eyelids normal Conjunctivae: conjunctivae normal Sclerae: sclerae normal Direct Ophthalmoscopy: normal light reflex, no papilledema and fundi normal bilaterally Neck Neck: Yes normal visual inspection and Yes full ROM Back/Spine/Pelvis Other: Several trigger points to the bilateral trapezius muscles Cervical Spine: normal cervical lordosis Thoracic/Lumbar Spine: thoracic and lumbar spine normal to inspection Neuro General: patient oriented x3 and deep tendon reflexes 2+ bilaterally Cranial nerves: Yes CN's II-XII intact bilaterally and Yes Facial sensation intact/muscles of mastication intact Cognition (Neuro): normal cognition Gait exam (Neuro): Normal gait present Motor exam (neuro): 5/5 motor strength present throughout and no tremor noted Sensory Exam: double simultaneous stimulation for sensation normal Romberg Test: Negative Pupils: Normal pupillary reactivity/response: bilateral Psych Appearance: grossly normal Mental Status: mental status grossly normal Speech and movement: Normal speech and movement present and Clear speech present Affect: normal affect Attitude: cooperative Thought process: Normal thought process present Thought content: Normal thought content present Insight: Good insight present (Psych) Judgement: Good judgement present (Psych) Assessment & Plan Assessment & Plan (1) Migraine without aura and without status migrainosus, not intractable: Code(s): G43.009 - Migraine without aura, not intractable, without status migrainosus Category: Medical (2) Trigger point of shoulder region: Code(s): M25.519 - Pain in unspecified shoulder Category: Medical (3) Myofascial pain: Code(s): M79.18 - Myalgia, other site Category: Medical Plan Ju is a 44-year-old female patient from [facility] with a past medical history of pelvic pain, IIH (diagnosed outside of [place]),and migraine here today for headache evaluation. Headaches are most consistent with migraine type headaches. She has tried something in the [facility] in the past which she was told was to help with blood vessels and spasms . She does not know the name but perhaps it was a calcium channel alton. I will try this first. BP is boarderline so we will watch this. For abortive therapy I will send for a trial of sumatriptan 50mg. She was educated on sideffects of these medications and expectations moving forward. She will call with any adverse effects. Her imaging, exam, and history were reassuring and not suggestive of increased intercranial pressure but more consistent with migraine. She does also have a myofacial component with several trapezius trigger points. -Start a trial of verapamil 100mg ER nightly -Start a trial of sumatriptan 50mg as needed for abortive therapy -Increase dose of magnesium 400mg nightly -Future considerations, muscle relaxer for preventive -Follow-up in 2 months or sooner if needed Medications: New sumatriptan succinate take 1 tab at onset of headache; if no relief may repeat 1 tab after at least 2 hrs; max = 4 tabs/24 hr PO 14 tabs 5RF 30 days verapamil ER 100 mg PO BEDTIME 30 caps 3RF 30 days Coding Level of Care Code New Pt Level 4 (59990) Diagnoses Migraine without aura and without status migrainosus, not intractable G43.009 Trigger point of shoulder region M25.519 Myofascial pain M79.18
[2025-05-21 09:06] VITALS: BP 112/80; PULSE 69; RESP 16; O2SAT 97; BMI 23.3
--- OUTSIDE RECORDS SUMMARY | 2025-05-21 09:11 | XMS_ITS | Encounter Summary ---
Author Organization [employer] Address [address] [facility] 7t [place] [address] Care Team Providers Care Business Continuity Director Name Role Phone Dori Garcia MD Primary Care Pro vider Encounter Details Date Type Department Care Team ([facility] st Contact Info) Description 12/06/2024 Telephone [facility] MEDICINE [address] [place], [place] [phone] Dori Garcia MD [address] [place] [address] Social History Tobacco Use Types Packs/Day Years [...] as of this encounter Plan of Treatment Upcoming Encounters Date Type Department Care Team (Late st Contact Info) Description 07/12/2025 9:45 AM EST Office Visit [facility] MEDICINE [address] [place] [address] Dori Garcia MD [address] [place] [address] documented as of this encounter Visit Diagnoses Not on filedocumented in this encounter Additional Health Concerns Assessment Noted Time PHQ-9 Depression Total Score: 0 02/16/20 9:06 AM EDT documented as of this encounter Care Teams Business Continuity Director Relationship Specialty Start Date End Date Dori Garcia MD [address] [place] [address] PCP - General Internal Medicine 02/15/23 documented as of this encounter
--- OUTSIDE RECORDS SUMMARY | 2025-05-21 09:11 | XMS_ITS | Clinical Summary ---
Author Organization [employer] Address [address] [place] [address] Care Team Providers Care Crop Duster Name Role Phone Dori Garcia MD Primary Care Pro vider Allergies No known active allergies Medications Multiple Vitamin (multivitamin) tablet Take 1 tablet by mouth Once per day. Active ibuprofen 400 MG tablet Take 400 mg by mouth every 6 (six) hours if needed for moderate pain. Active Active Problems Problem Noted Date Diagnosed [...] sx. Will call for for [facility] vision appt Dental: discuss at next visit Assessment & Plan (02/15/2023 1:25 PM EDT): Reviewed labs with pt in clinic today Frequent headaches 01/18/2023 Overview (03/03/2023): Ddx: Migraines; pseudotumor cerebri; tension headache; medication overuse headache MRI performed, results pending Sumatriptan 25 mg PRN for headache Rx Zofran for nausea; educated on use Taking med Corvaltab that was prescribed in [facility] Assessment & Plan (03/03/2023 10:31 [...] Will schedule for vision exam [facility] Vision urgent d/t continued darkening of vision F/u 2-3 mo with new PCP or sooner PRN Encounters Date Type Department Care Team Description 04/01/2025 Results Follow-Up [address] [address] Shantelle Guzman ANP Chlamydia/Trichomonas /Neisseria gonorrhoeae, PCR, Urine, CBC auto differential, Comprehensive Metabolic Panel, Additional followed-up results: 9 03/29/2025 9:15 AM EDT Office Visit [address] [address] Dori Garcia MD Encounter for screening mammogram for malignant neoplasm of breast (Primary Dx); Health care maintenance; Frequent headaches; Annual physical exam 03/29/2025 Travel 03/28/[address] [place] [address] Dori Garcia MD chart prep 03/21/2025 Patient Outreach [facility] MEDICINE [address] [place] [address] Dori Garcia MD Pre-visit Planning (Pre-visit planning [...] your housing situation today? I have ben barlow 03/14/[address] you [...] 03/29/2025 9:35 AM EDT Plan of Treatment Upcoming Encounters Date Type Department Care Team (Late st Contact Info) Description 07/12/2025 9:45 AM EST Office Visit [facility] MEDICINE [address] [place] [phone] Dori Garcia MD [address] [place], [place] [phone] Health Maintenance Due Date Last Done Comments Disability Screening 1981 Alcohol/Substance Use Screening 1993 Family Planning (PISQ) 1996 HPV Vaccines (1 - 3-dose series) 1996 DTaP/Tdap/Td Vaccines (1 - Tdap) 2000 Hepatitis B Vaccines (1 of 3 - 19+ 3-dose series) 2000 Pap Smear 2002 Cervical Cancer Screening 10/24/2011 HPV/Cotest 10/24/2011 Mammogram 2021 SDOH Screening 02/16/2024 02/15/2023 COVID-19 Vaccine (1 - 2024-2 6 season) 2025 Influenza Vaccine (#1) 2025 Depression Screening 03/29/2026 03/29/2025, 02/15/2023 Tobacco Screening 03/29/2026 03/29/2025 Zoster Vaccines (1 of 2) 10/24/2031 RSV Patients and Patients Aged 60 years or older (1 - 1-dose 75+ series) 2056 HIV Screening Completed 03/29/2025, 01/20/2023 Hepatitis C Screening Completed 03/29/2025 , 01/20/2023 HIB Vaccines Aged Out No longer [...] Procedure Name Priority Date/Time Associated Diagnosis Comments CHLAMYDIA/TRICHOMONAS/ NEISSERIA GONORRHOEAE, PCR, URINE Routine 03/29/2025 10:45 AM EDT Annual physical exam TSH W/REFLEX TO FT4 Routine 03/29/2025 1 0:44 AM EDT Annual physical exam SYPHILIS SCREEN Routine 03/29/2025 10:44 AM EDT Annual physical exam LIPID PANEL, STANDARD Routine 03/29/2025 10:44 AM EDT Annual physical exam HEMOGLOBIN A1C Routine 03/29/2025 10:44 AM EDT Annual physical exam COMPREHENSIVE METABOLIC PANEL Routine 03/29/2025 10:44 AM EDT Annual physical exam CBC WITH AUTO DIFFERENTIAL Routine 03/29/2025 10:44 AM EDT Annual physical exam HIV 1/2 ANTIGEN/ANTIBODY, FOURTH GENERATION W/RFL Routine 03/29/2025 10:41 AM EDT Annual physical exam HEPATITIS C AB W/REFL TO HCV RNA, QN, PCR Routine 03/29/2025 10:41 AM EDT Annual physical exam HEPATITIS B SURFACE ANTIGEN, EIA Routine 03/29/2025 10:41 AM EDT Annual physical exam HEPATITIS B SURFACE ANTIBODY, QUALITATIVE Routine 03/29/2025 10:41 AM EDT Annual physical exam HEPATITIS B CORE AB TOTAL Routine 03/29/2025 10:41 AM EDT Annual physical exam from Last 3 Months Results * Chlamydia/Trichomonas/Neisseria gonorrhoeae, PCR, Urine (03/29/2025 10:45 AM EDT) CT PCR, Urine NOT DETECTED Not Detect. [facility] Comment:A not detected test result does not exclude the possibilityof infection because test results can be affected byimproper specimen collection, concurrent antibiotic therapy,or the number of organisms in the specimen which may bebelow the sensitivity of the test. As with many diagnostictests, results from the Xpert CT/NG assay should beinterpreted in conjunction with other laboratory andclinical data available to the clinician.The Xpert CT/NG assay should not be used for the evaluationof suspected sexual abuse or for other medico-legalindications. Additional testing is recommended in anycircumstance when false positive or false negative resultscould lead to adverse medical, social or psychologicalconsequences. NG PCR, Urine NOT DETECTED Not Detect. [facility] Comment:A not detected test result does not exclude the possibilityof infection because test results can be affected byimproper specimen collection, concurrent antibiotic therapy,or the number of organisms in the specimen which may bebelow the sensitivity of the test. As with many diagnostictests, results from the Xpert CT/NG assay should beinterpreted in conjunction with other laboratory andclinical data available to the clinician.The Xpert CT/NG assay should not be used for the evaluationof suspected sexual abuse or for other medico-legalindications. Additional testing is recommended in anycircumstance when false positive or false negative resultscould lead to adverse medical, social or psychologicalconsequences. Urine (Urine, Random) 03/29/2025 10:45 AM EDT 03/29/2025 11:34 AM EDT us Dori Roberts MD LAB URINE ORDERAB LES Final Result Performing Organization Address [facility] Co de Phone Number [facility] [address] [place] [phone] * Syphilis Screen (03/29/2025 10:44 AM EDT) Pathologist [facility] Syphilis Screen Nonreactive Nonreactive [facility] Blood 03/29/2025 10:4 4 AM EDT 03/29/2025 1:06 PM EDT us Dori Roberts MD LAB BLOOD ORDERAB LES Final Result Performing Organization Address [facility] Phone Number [facility] [address] [place] [phone] * TSH with Reflex to Free T4 (03/29/2025 10:44 AM EDT) Pathologist [facility] TSH reflex Free T4 0.89 0.32 - 4.0 uIU/mL [facility] Blood 03/29/2025 10:4 4 AM EDT 03/29/2025 1:06 PM EDT us Dori Roberts MD LAB BLOOD ORDERAB LES Final Result Performing Organization Address [facility] de Phone Number [facility] [address] [place] [phone] * CBC auto differential (03/29/2025 10:44 AM EDT) Pathologist [facility] White Blood Count 5.1 4.8 - 10.8 X10*3/uL [facility] Red Blood Count 4.51 4.20 - 5.50 X10*6/uL [facility] Hemoglobin 12.4 12.0 - 16.0 g/dl [facility] Hematocrit 40.0 37.0 - 47.0 % [facility] Mean Corpuscular Volume 88.7 80.0 - 98.0 fL [facility] Mean Corpuscular Hemoglobin 27.5 27.0 - 33.0 pg [facility] Mean Corpuscular HGB Conc 31.0 31.0 - 35.0 g/dl [facility] Red Cell Distribution Width 13.2 11.0 - 16.0 % [facility] Platelet Count 238 160 - 400 X10*3/uL [facility] Mean Platelet Volume 11.5 9.4 - 12.3 fL [facility] Neutrophils Percent Auto 66.1 45 - 73 % [facility] Imm Gran Pct Auto 0.2 0.0 - 0.4 % [facility] Lymphocytes Percent Auto 23.3 20 - 40 % [facility] Monocytes Percent Auto 8.0 2 - 11 % [facility] Eosinophils Percent Auto 1.6 0 - 4 % [facility] Basophils Percent Auto 0.8 0 - 2 % [facility] NRBC Pct Auto 0.0 0.0 - 0.2 /100WBC [facility] Neutrophils Absolute Auto 3.4 2.0 - 8.3 x10*3/uL [facility] Imm Gran Abs Auto 0.01 0.00 - 0.03 X10*3/uL [facility] Lymphocytes Absolute Auto 1.2 1.2 - 4.9 X10*3/uL [facility] Monocytes Absolute Auto 0.4 0.1 - 1.2 X10*3/uL [facility] Eosinophils Absolute Auto 0.1 0.0 - 0.4 X10*3/uL [facility] Basophils Absolute Auto 0.0 0.0 - 0.2 X10*3/uL [facility] NRBC Abs Auto 0.000 0.0 - 0.012 X10*3/uL [facility] Blood Venous blood specimen / Unknown 03/29/2025 10:44 AM EDT 03/29/2025 11:22 AM EDT us Dori Roberts MD LAB BLOOD ORDERAB LES Final Result Performing Organization Address City/[facility]/ZIP Co de Phone Number [facility] [address] [place] [phone] * Hemoglobin A1c (03/29/2025 10:44 AM EDT) Hemoglobin A1c 5.3 <6.0 % [facility] Comment:Hemoglobin A1C Refer ence Range Adults: 4.8 - 6.0 % Non diabetic: < 6.0 % Goal: < 7.0 %Additional Action Suggested: > 8.0 %Note: Hemoglobin A1c results are invalid for patients with abnormal amounts of HbF. Blood transfusions may impact the HbA1c concentration in the patient sample. Estimated Average Glucose 105 mg/dL [facility] Comment:eAG = Estimated ave rage glucose which is %A1C expressed asaverage glucose, using the formula of the [id number] Glucose study (ADAG), Diabetes Care, Vol.31,#8,Dec. 2007 Blood Venous blood specimen / Unknown 03/29/2025 10:44 AM EDT 03/29/2025 11:22 AM EDT us Dori Roberts MD LAB BLOOD ORDERAB LES Final Result Performing Organization Address City/[facility]/ZIP Co de Phone Number [facility] [address] [place] [phone] * Lipid Panel, Standard (03/29/2025 10:44 AM EDT) Triglycerides 45 <150 mg/dL [facility] Comment:Desirable Triglyceri de: less than 150 mg/dLBorderline High Triglyceride 150-199 mg/dLHigh Triglyceride: 200-499 mg/dLVery High Triglyceride: greater than or equal to 5OO mg/dL Cholesterol 158 <200 mg/dL [facility] Comment:Desirable Cholestero l: less than 200 mg/dLBorderline High Cholesterol: 200-239 mg/dLHigh Cholesterol: greater than 239 mg/dL LDL Cholesterol Calculated 86 <100 mg/dL [facility] Comment:Desirable LDL: less than 100 mg/dLNear Optimal/Above Optimal LDL: 110- 129 mg/dLBorderline High LDL: 130-159 mg/dLHigh LDL: 160-189 mg/dLVery High LDL: greater than or equal to 190 mg/dL HDL Cholesterol 63 >40 mg/dL [facility] Comment:Desirable HDL: great er than 40 mg/dL Note: This HDL assay may give artificially low results in patients with liver disease. Blood Venous blood specimen / Unknown 03/29/2025 10:44 AM EDT 03/29/2025 1:06 PM EDT us Dori Roberts MD LAB BLOOD ORDERAB LES Final Result [facility] [address] [place] [phone] * Comprehensive Metabolic Panel (03/29/2025 10:44 AM EDT) Sodium 140 135 - 145 mmol/L [facility] Potassium 3.8 3.3 - 5.1 mmol/L [facility] Chloride 104 96 - 108 mmol/L [facility] Carbon Dioxide 28 22 - 29 mmol/L [facility] Anion Gap 12 12 - 20 [facility] Urea Nitrogen (BUN) 10 9 - 16 mg/dL [facility] Creatinine, Serum 0.64 0.5 - 1.4 mg/dL [facility] Estimated Glomerular Filt Rate >60 [facility] Comment:Chronic Kidney Disea se: Estimated GFR < 60 mL/min/[id number] Kidney Disease: Estimated GFR < 15 mL/min/1.73m2 Glucose 104 60 - 115 mg/dL [facility] Calcium 9.3 8.4 - 10.2 mg/dL [facility] Bilirubin, Total 0.4 0.0 - 1.0 mg/dL [facility] Aspartate Amino Transferase 26 5 - 31 U/L [facility] Alanine Aminotransferase 23 0 - 31 U/L [facility] Total Protein 7.3 6.5 - 8.0 g/dL [facility] Albumin Level 4.6 3.5 - 5.0 g/dL [facility] Alkaline Phosphatase 54 39 - 117 U/L [facility] Blood Venous blood specimen / Unknown 03/29/2025 10:44 AM EDT 03/29/2025 1:06 PM EDT us Dori Roberts MD LAB BLOOD ORDERAB LES Final Result [facility] [address] [place] [phone] * Hepatitis C Antibody with Reflex to HCV, RNA, Quantitative, Real-Time PCR (03/29/2025 10:41 AM EDT) Hepatitis C Antibody Nonreactive Nonreactive [facility] Comment:Antibodies to HCV no t detected; does not exclude early acuteHCV infection. Blood Venous blood specimen / Unknown 03/29/2025 10:41 AM EDT 03/29/2025 1:06 PM EDT us Dori Roberts MD LAB BLOOD ORDERAB LES Final Result Performing Organization Address [facility] [employer] de Phone Number [facility] [address] [place] [phone] * Hepatitis B surface antigen, EIA (03/29/2025 10:41 AM EDT) Hepatitis B Surface Ag Negative Negative [facility] Blood Venous blood specimen / Unknown 03/29/2025 10:41 AM EDT 03/29/2025 1:06 PM EDT us Dori Roberts MD LAB BLOOD ORDERAB LES Final Result Performing Organization Address City/[facility] Co de Phone Number [facility] [address] [place] [phone] * Hepatitis B Core Antibody, Total (03/29/2025 10:41 AM EDT) [facility] Hepatitis B Core Antibody Nonreactive Nonreactive [facility] Blood Venous blood specimen / Unknown 03/29/2025 10:41 AM EDT 03/29/2025 1:06 PM EDT us Dori Roberts MD LAB BLOOD ORDERAB LES Final Result Performing Organization Address City/[facility]/ZIP Co de Phone Number [facility] [address] [place] [phone] * HIV-1/2 Antigen and Antibodies, Fourth Generation, with Reflexes (03/29/2025 10:41 AM EDT) [facility] HIV AB/AG Nonreactive Nonreactive [facility] Comment:HIV-1 p24 Ag and/or HIV-1/HIV-2 Ab not detected.A test result that is nonreactive does not exclude thepossibility of exposure to or infection with HIV-1 and/orHIV-2. Nonreactive results in this assay for individualswith prior exposure to HIV-1 and/or HIV-2 may be due toantigen and antibody levels that are below the limit ofdetection of this assay.The [employer] HIV Ag/Ab Combo assay result andsupplemental assay results should be interpreted inconjunction with the patient's clinical presentation,history and other laboratory results. If the results areinconsistent with clinical evidence, additional testing issuggested to confirm the result. Blood Venous blood specimen / Unknown 03/29/2025 10:41 AM EDT 03/29/2025 1:06 PM EDT us Dori Roberts MD LAB BLOOD ORDERAB LES Final Result Performing Organization Address City/[facility]/ZIP Co de Phone Number [facility] [address] [place] [phone] * Hepatitis B Surface Antibody, Qualitative (03/29/2025 10:41 AM EDT) ~Hepatitis B Surface Antibody NONREACTIVE Nonreactive [facility] Comment:Nonreactive: < 8.00 mIU/mL Blood Venous blood specimen / Unknown 03/29/2025 10:41 AM EDT 03/29/2025 1:06 PM EDT Dori Roberts MD LAB BLOOD ORDERAB LES Final Result [facility] [address] [place] [phone] from Last 3 Months Insurance [employer] C3 Care Teams Crop Duster Relationship Specialty Start Date End Date Dori Garcia MD [address] [place] [address] PCP - General Internal Medicine 02/15/23
== END 2025-05-21 10:12 | disposition home or self-care (01) ==
LOC: HO.HSM 08:50
PROVIDERS: PCP Student in an Organized Health Care Education/Training Program; Visit Provider Nurse Practitioner
DX: G43.009 Migraine without aura, not intractable, without status migrainosus (principal); M25.519 Pain in unspecified shoulder; M79.18 Myalgia, other site
CPT/HCPCS: 99204

== ENCOUNTER → 2025-05-21 08:49 | Outpatient (BNVA) | payer MEDICAID, SELFPAY | PROVIDERS: PCP Student in an Organized Health Care Education/Training Program; Visit Provider Nurse Practitioner | DX: G43.009 Migraine without aura, not intractable, without status migrainosus (principal); M25.519 Pain in unspecified shoulder; M79.18 Myalgia, other site; Z79.899 Other long term (current) drug therapy | CPT/HCPCS: 99202 ==